=== PATIENT | female | born 1980 | race Caucasian/White ===

== ENCOUNTER 2016-07-14 15:18 | Inpatient (IN) | payer MEDICAID ==
[~2016-07-14] VITALS: Ht 177.8 cm; Wt 70.0 kg
[2016-07-14 16:11] LABS: Basophils # (auto) 0.1 uL; Basophils % (auto) 0.6 % (0.0-2.0); Eosinophils # (auto) 0.3 uL; Eosinophils % (auto) 3.3 % (0.0-7.0); Hematocrit 40.2 % (36.0-46.0); Hemoglobin 13.6 g/dL (12.2-16.2); Lymphocytes # (auto) 2.4 uL; Lymphocytes % (auto) 23.3 % (10.0-50.0); Mean Corpuscular Hemoglobin 31.2 pg (28.0-32.0); Mean Corpuscular Hgb Conc. 33.7 g/dL (32.0-36.0); Mean Corpuscular Volume 92.6 fL (80.0-100.0); Mean Platelet Volume 8.7 fL (7.4-10.4); Monocytes # (auto) 0.5 uL; Monocytes % (auto) 4.7 % (0.0-12.0); Neutrophils % (auto) 68.1 % (37.0-80.0); Platelet Count (auto) 224 10^3/uL (140-450); Red Cell Distribution Width 14.1 % (11.6-16.0); White Blood Cell 10.3 10^3/uL (4.4-10.8)
[2016-07-14 16:22] LABS: Urine Bilirubin Negative (Negative); Urine Blood TRACE /uL (Negative); Urine Color Yellow (Yellow); Urine Glucose Normal (Normal); Urine Ketone Negative (Negative); Urine Mucus FEW (None Seen); Urine Nitrite Negative (Negative); Urine RBC 15 /hpf (0 - 4); Urine Squamous Epithelial Cell FEW /hpf (<5)
[2016-07-14 16:31] LABS: BUN/Creatinine Ratio 13.6; Calcium 8.3 mg/dL (8.5-10.1); Potassium 3.7 mmol/L (3.5-5.1)
[2016-07-14 16:33] LABS: Bilirubin, Total 0.4 mg/dL (0.2-1.0); Total Protein 7.3 g/dL (6.4-8.2)
[2016-07-14] MEDS ORDERED: MORPHINE SULF INJ 2 MG/ML SYRINGE 1ML IM ONE (18:00)
[2016-07-14] MEDS ORDERED: SODIUM CHLORIDE 0.9% 1,000 ML IV ONE (18:00)
[2016-07-14] MEDS ORDERED: METOCLOPRAMIDE HCL 5MG/ml INJ 2ml VIAL IV ONE ×2 (18:15→21:15)
[2016-07-14] MEDS ORDERED: KETOROLAC TROMETH 30 MG/ML 1ML VIAL IV ONE ×2 (18:15→21:15)
[2016-07-14] MEDS ORDERED: HYDROmorphone HCL 2 MG/ML VL IV PRN (22:30)
[2016-07-14] MEDS: SODIUM CHLORIDE 0.9% 1,000 ML IV SCH (22:44)
[2016-07-14 23:13] LABS: INR 1.03 (0.9-1.15); Partial Thromboplastin Time 24.2 sec (22.64-33.71); Prothrombin Time 11.1 sec (9.37-12.3)
[2016-07-14 23:45] VITALS: BP 95/56
[2016-07-15] VITALS (7 sets, daily range): BP systolic 95–134; BP diastolic 46–68
[2016-07-15] MEDS: ceFAZolin 1GM/50ML D5W 50 ML IV SCH ×5 (00:05→23:19)
[2016-07-15] MEDS ORDERED: IBUP800T24 PO (00:41)
[2016-07-15] MEDS: SODIUM CHLORIDE 0.9% 1,000 ML IV SCH ×3 (05:56→23:19)
[2016-07-15] MEDS: ONDANSETRON HCL 4 MG/2 ML VIAL IV PRN (19:42)
[2016-07-16 05:00] VITALS: BP 111/62
[2016-07-16] MEDS: ceFAZolin 1GM/50ML D5W 50 ML IV SCH ×4 (05:31→23:14)
[2016-07-16] MEDS ORDERED: MIDAZOLAM HCL 1MG/1ML-2 ML VIAL ONE (06:26)
[2016-07-16] MEDS ORDERED: ROCURONIUM 10MG/ML 10ML VIAL IV ONE (06:26)
[2016-07-16] MEDS ORDERED: fentaNYL CITRATE 100 MCG/2 ML VL ONE (06:26)
[2016-07-16] MEDS ORDERED: fentaNYL CITRATE 10 ML ONE (06:26)
[2016-07-16] MEDS ORDERED: PROPOFOL 10 MG/ML 20 ML IV ONE (06:27)
[2016-07-16] MEDS ORDERED: SODIUM CHLORIDE LOCK 50 ML ONE (06:27)
[2016-07-16] MEDS ORDERED: MEPERIDINE HCL (50 MG/ML) 1 ML VIAL ONE (06:27)
[2016-07-16] MEDS ORDERED: ceFAZolin 1GM/50ML D5W 0 ML IV ONE (06:41)
[2016-07-16] MEDS ORDERED: HYDROmorphone HCL 2 MG/ML VL IV PRN (07:00)
[2016-07-16] MEDS ORDERED: KETOROLAC TROMETH 30 MG/ML 1ML VIAL IV ONE (07:00)
[2016-07-16] MEDS ORDERED: METOCLOPRAMIDE HCL 5MG/ml INJ 2ml VIAL IV ONE (07:00)
[2016-07-16] MEDS ORDERED: LIDOCAINE HCL (LOCAL ANESTH.) 0.5 % 50ML MDV IJ ONE (07:08)
[2016-07-16] MEDS ORDERED: BUPIVACAINE 0.25% INJ 50ML VIAL ONE (07:08)
[2016-07-16] MEDS ORDERED: LIDOCAINE W/ EPINEPHRINE 1 % INJ 30ML ONE (07:08)
[2016-07-16] MEDS: SODIUM CHLORIDE 0.9% 1,000 ML IV SCH ×3 (07:28→17:04)
[2016-07-16 08:00] VITALS: BP 104/74
[2016-07-16] MEDS ORDERED: GLYCOPYRROLATE 0.2 MG/ML 1ML VIAL ONE (08:29)
[2016-07-16] MEDS ORDERED: NEOSTIGMINE 1 MG/ML INJ (10mg/10ML VIAL) ONE (08:29)
[2016-07-16] MEDS ORDERED: KETOROLAC TROMETH 60MG/2ML VIAL IM ONE (08:29)
[2016-07-16] MEDS ORDERED: NITROGLYCERIN 0.4 MG SL TAB SL PRN (09:15)
[2016-07-16] MEDS ORDERED: METOCLOPRAMIDE HCL 5MG/ml INJ 2ml VIAL ONE (09:21)
[2016-07-16] MEDS ORDERED: PROCHLORPERAZINE EDISYLATE 5 MG/ML 2ML VIAL IV ONE ×2 (09:45→10:00)
[2016-07-16 11:19] VITALS: BP 104/74
[2016-07-16] MEDS: ONDANSETRON HCL 4 MG/2 ML VIAL IV PRN ×2 (13:03→17:10)
[2016-07-16 13:30] LABS: Basophils # (auto) 0 uL; Basophils % (auto) 0.2 % (0.0-2.0); Eosinophils # (auto) 0 uL; Eosinophils % (auto) 0.2 % (0.0-7.0); Hematocrit 30.2 % (36.0-46.0); Hemoglobin 10.2 g/dL (12.2-16.2); Lymphocytes % (auto) 8.3 % (10.0-50.0); Mean Corpuscular Hemoglobin 31.5 pg (28.0-32.0); Mean Corpuscular Hgb Conc. 33.7 g/dL (32.0-36.0); Mean Corpuscular Volume 93.4 fL (80.0-100.0); Mean Platelet Volume 8.9 fL (7.4-10.4); Monocytes # (auto) 0.6 uL; Monocytes % (auto) 5.1 % (0.0-12.0); Neutrophils # (auto) 10.2 uL; Neutrophils % (auto) 86.2 % (37.0-80.0); Platelet Count (auto) 180 10^3/uL (140-450); Red Cell Distribution Width 13.7 % (11.6-16.0); White Blood Cell 11.9 10^3/uL (4.4-10.8)
[2016-07-16 13:35] VITALS: BP 108/66
[2016-07-16 20:00] VITALS: BP 105/60
[2016-07-16 22:07] VITALS: BP 105/60
[2016-07-17] MEDS: ACETAMINOPHEN 500 MG TAB PO PRN ×3 (01:58→13:09)
[2016-07-17] MEDS: SODIUM CHLORIDE 0.9% 1,000 ML IV SCH ×2 (01:59→09:02)
[2016-07-17 05:00] VITALS: BP 116/61
[2016-07-17] MEDS: ceFAZolin 1GM/50ML D5W 50 ML IV SCH ×2 (05:19→12:00)
[2016-07-17 05:20] LABS: Basophils # (auto) 0 uL; Basophils % (auto) 0.3 % (0.0-2.0); Eosinophils # (auto) 0.1 uL; Eosinophils % (auto) 1.2 % (0.0-7.0); Hematocrit 28.9 % (36.0-46.0); Hemoglobin 9.7 g/dL (12.2-16.2); Lymphocytes # (auto) 1.6 uL; Lymphocytes % (auto) 19.4 % (10.0-50.0); Mean Corpuscular Hemoglobin 31.1 pg (28.0-32.0); Mean Corpuscular Hgb Conc. 33.5 g/dL (32.0-36.0); Mean Corpuscular Volume 92.9 fL (80.0-100.0); Mean Platelet Volume 9.6 fL (7.4-10.4); Monocytes # (auto) 0.6 uL; Neutrophils % (auto) 72.1 % (37.0-80.0); Platelet Count (auto) 177 10^3/uL (140-450); Red Cell Distribution Width 14.1 % (11.6-16.0); White Blood Cell 8.3 10^3/uL (4.4-10.8)
[2016-07-17 06:39] VITALS: BP 102/58
[2016-07-17 08:00] VITALS: BP 102/58
[2016-07-17 10:47] VITALS: BP 110/65
== END 2016-07-17 12:35 | disposition home or self-care (01) | DRG 951 ==
LOC: ER 15:18 → OVERFLOW 15:19 → WEST WING 23:06
PROVIDERS: ADMIT Obstetrics & Gynecology; ATTEND Obstetrics & Gynecology
PROC: 0UT14ZZ Resection of Left Ovary, Percutaneous Endoscopic Approach (ICD-10-PCS; 2016-07-16)
PROC: 8E0W4CZ Robotic Assisted Procedure of Trunk Region, Percutaneous Endoscopic Approach (ICD-10-PCS; 2016-07-16)
PROC: 0U904ZZ Drainage of Right Ovary, Percutaneous Endoscopic Approach (ICD-10-PCS; 2016-07-16)
PROC: 0UT64ZZ Resection of Left Fallopian Tube, Percutaneous Endoscopic Approach (ICD-10-PCS; principal; 2016-07-16 07:24)
DX: R19.00 Intra-abdominal and pelvic swelling, mass and lump, unspecified site (principal); K66.1 Hemoperitoneum; N39.0 Urinary tract infection, site not specified; F17.210 Nicotine dependence, cigarettes, uncomplicated; E28.2 Polycystic ovarian syndrome; Z85.41 Personal history of malignant neoplasm of cervix uteri; Z82.5 Family history of asthma and other chronic lower respiratory diseases; Z80.41 Family history of malignant neoplasm of ovary; Z80.49 Family history of malignant neoplasm of other genital organs
CPT/HCPCS: 36415; 74177; 76830; 76856; 80053; 81001; 84702; 85025; 85610; 85730; 86850; 86900; 86901; 96374; 96375; 96376; J0690; J1885; J2250; J2405; J2704; J3490

== ENCOUNTER 2019-01-12 11:21 | Emergency (ER) | payer MEDICAID ==
[~2019-01-12] VITALS: Ht 177.8 cm; Wt 81.6 kg
[~2019-01-12 11:21] MED LIST: IBUP800T24 PO
[2019-01-12 13:05] LABS: Basophils # (auto) 0.1 uL; Basophils % (auto) 0.9 % (0.0-2.0); Eosinophils # (auto) 0.3 uL; Eosinophils % (auto) 3.7 % (0.0-7.0); Hemoglobin 14.8 g/dL (12.2-16.2); Lymphocytes # (auto) 2.6 uL; Lymphocytes % (auto) 28.4 % (10.0-50.0); Mean Corpuscular Hemoglobin 31.3 pg (28.0-32.0); Mean Corpuscular Hgb Conc. 34.4 g/dL (32.0-36.0); Mean Corpuscular Volume 91.1 fL (80.0-100.0); Monocytes # (auto) 0.4 uL; Monocytes % (auto) 4.7 % (0.0-12.0); Neutrophils # (auto) 5.8 uL; Neutrophils % (auto) 62.3 % (37.0-80.0); Nucleated Red Blood Cells % 0.1 %; Platelet Count (auto) 211 10^3/uL (140-450); Red Blood Cells 4.72 10^6/uL (4.0-5.20); Red Cell Distribution Width 13.5 % (11.8-14.3); White Blood Cell 9.3 10^3/uL (4.4-10.8)
[2019-01-12 13:31] LABS: Urine Bacteria FEW /hpf (None Seen); Urine Blood 1+ /uL (Negative); Urine Specific Gravity 1.014 (1.001-1.035); Urine WBC 1 /hpf (0 - 5)
[2019-01-12 16:26] VITALS: BP 119/70
== END 2019-01-12 16:30 | disposition home or self-care (01) ==
LOC: ER 11:21
DX: N39.0 Urinary tract infection, site not specified (principal); F17.210 Nicotine dependence, cigarettes, uncomplicated; F12.10 Cannabis abuse, uncomplicated; Z90.710 Acquired absence of both cervix and uterus; N83.202 Unspecified ovarian cyst, left side; N83.201 Unspecified ovarian cyst, right side
CPT/HCPCS: 36415; 81001; 85025

== ENCOUNTER 2022-05-21 14:10 | Emergency (ER) | payer MEDICAID ==
[~2022-05-21] VITALS: Ht 177.8 cm; Wt 90.0 kg
[~2022-05-21 14:10] MED LIST changes: -IBUP800T24 PO; +IBUP800T27 PO
[2022-05-21 14:18] VITALS: BP 142/76
[2022-05-21 14:54] LABS: Basophils # (auto) 0.1 10 ^3/uL (0-0.2); Basophils % (auto) 0.8 % (0.0-2.0); Eosinophils # (auto) 0.2 10 ^3/uL (0-0.8); Eosinophils % (auto) 2.4 % (0.0-7.0); Hematocrit 40.7 % (36.0-46.0); Hemoglobin 14.4 g/dL (12.2-16.2); Lymphocytes % (auto) 32.3 % (10.0-50.0); Mean Corpuscular Hemoglobin 31.3 pg (28.0-32.0); Mean Corpuscular Hgb Conc. 35.4 g/dL (32.0-36.0); Mean Corpuscular Volume 88.4 fL (80.0-100.0); Monocytes # (auto) 0.5 10 ^3/uL (0-1.3); Neutrophils # (auto) 5.5 10 ^3/uL (1.6-8.6); Neutrophils % (auto) 59.5 % (37.0-80.0); Nucleated Red Blood Cells % 0.1 %; Red Blood Cells 4.61 10^6/uL (4.0-5.20); Red Cell Distribution Width 13.3 % (11.8-14.3); White Blood Cell 9.2 10^3/uL (4.4-10.8)
[2022-05-21 14:57] LABS: BUN/Creatinine Ratio 13.7; Calcium 9.2 mg/dL (8.5-10.1); Potassium 4.1 mmol/L (3.5-5.1)
[2022-05-21 15:05] LABS: Bilirubin, Total 0.4 mg/dL (0.2-1.0); Total Protein 7.2 g/dL (6.4-8.2)
[2022-05-21] MEDS ORDERED: CYCLOBENZAPRINE HCL 10 MG TAB PO ONE (16:00)
[2022-05-21] MEDS ORDERED: HYDROcodone-ACET 5/325MG TAB PO ONE (16:00)
== END 2022-05-21 20:10 | disposition left against medical advice (07) ==
LOC: ER 14:10
DX: R07.89 Other chest pain (principal); Z90.710 Acquired absence of both cervix and uterus; Z79.1 Long term (current) use of non-steroidal anti-inflammatories (NSAID)
CPT/HCPCS: 36415; 71045; 80053; 83735; 83880; 84484; 84702; 85025; 85379; 93005

== ENCOUNTER 2024-04-29 11:30 | Inpatient (IN) | payer MEDICAID ==
[~2024-04-29] VITALS: Ht 177.8 cm; Wt 100.5 kg
[~2024-04-29 11:30] MED LIST changes: +IBUP-1456 PO; -IBUP800T27 PO
--- NOTE | 2024-04-29 11:49 | ED.PDOC ---
History of Present Illness HPI Comments 43F presents to the Er w/ prior Hx of a hysterectomy and ovary Sx which all may be associated to the c/c of ABD pain. Pt reports on waking up this morning at 0200 w/ epigastric pain and N/V. Pt states that she woke up at 0400 she was having /D, w/ blood and chills. Social Hx of Tobacco and Marijuana use but denies alcohol use. Family Hx of DM and COPD. Denies chills, fever, N/V/D, SOB, CP or other associated symptom's, modifiers, or recent injuries or sick contact at this time. Chief Complaint: Abdominal Pain Time Seen by MD: 11:40 Primary Care Provider: NONE Reviewed Notes: Nurses Notes, Medications, Allergies Allergies: Coded Allergies: NO KNOWN ALLERGIES (Unverified , 03/09/18) Home Meds Reported Medications Ibuprofen (Ibuprofen) 800 Mg Tab, 800 MG PO PRN for MILD PAIN, MG 07/15/16 Information Source: Patient Mode of Arrival: Ambulatory Severity: Moderate Timing: Hours Duration: Since onset, Hours Prehospital treatment: None Past Medical History PAST MEDICAL HISTORY: Denies Surgical History: Hysterectomy [employer]ATOR History: Ovarian Cysts (removed) Family History Family History: Family hx of DM, Family hx of lung dara Social History Smoker: Cigarettes Alcohol: Denies ETOH Use Drugs: Marijuana Lives In: Home Constitutional: reports: chills; denies: diaphoresis, fatigue, fever, malaise, sweats, weakness, others EENTM: denies: blurred vision, double vision, ear bleeding, ear discharge, ear drainage, ear pain, ear ringing, eye pain, eye redness, hearing loss, mouth pain, mouth swelling, nasal discharge, nose bleeding, nose congestion, nose pain, photophobia, tearing, throat pain, throat swelling, voice changes, others Respiratory: denies: cough, hemoptysis, orthopnea, SOB at rest, shortness of breath, SOB with excertion, stridor, wheezing, others Cardiovascular: denies: chest pain, dizzy spells, diaphoresis, Dyspnea on exertion, edema, irregular heart beat, left arm pain, lightheadedness, palpitations, PND, syncope, others Gastrointestinal: reports: diarrhea, nausea, vomiting, others (Hematochezia); denies: abdomen distended, abdominal pain, blood streaked bowels, constipated, dysphagia, difficulty swallowing, hematemesis, melena, poor appetite, poor fluid intake, rectal bleeding, rectal pain Genitourinary: denies: abnormal vagina bleeding, burning, dyspareunia, dysuria, flank pain, frequency, hematuria, incontinence, pain, , vagina discharge, urgency, others Neurological: denies: dizziness, fainting, headache, left sided numbness, left sided weakness, numbness, paresthesia, pre-existing deficit, right sided numbness, right sided weakness, seizure, speech problems, tingling, tremors, weakness, others Musculoskeletal: denies: back pain, gout, joint pain, joint swelling, muscle pain, muscle stiffness, neck pain, others Integumetry: denies: bruises, change in color, change in hair/nails, dryness, laceration, lesions, lumps, rash, wounds, others Allergic/Immunocompromised: denies: Difficulty Healing, Frequent Infections, Hives, Itching, others Hematologic/Lymphatic: denies: anemia, blood clots, easy bleeding, easy bruising, swollen glands, others Endocrine: denies: excessive hunger, excessive sweating, excessive thirst, excessive urination, flushing, intolerance to cold, intolerance to heat, unexplained weight gain, unexplained weight loss, others Psychiatric: denies: anxiety, bipolar disorder, depression, hopeless, panic disorder, schizophrenia, sleepless, suicidal, others All Other Systems: Reviewed and Negative Physical Exam General Appearance: Moderate Distress HEENT: Normal ENT Inspection, Pharynx Normal, TMs Normal Neck: Full Range of Motion, Non-Tender, Normal, Normal Inspection Respiratory: Chest Non-Tender, Lungs Clear, No Accessory Muscle Use, No Respiratory Distress, Normal Breath Sounds Cardiovascular: No Edema, No JVD, No Murmur, No Gallop, Normal Peripheral Pulses, Regular Rate/Rhythm Breast Exam: Deferred Gastrointestinal: Diffuse, No Organomegaly, No Pulsatile Mass, Normal Bowel Sounds, Soft, Tenderness Genitalia: Deferred Pelvic: Deferred Rectal: Deferred Extremities: No calf tenderness, Normal capillary refill, Normal inspection, Normal range of motion, Non-tender, No pedal edema Musculoskeletal : Apperance: Normal Neurologic: Alert, filter filler II-XII nml as Tested, Motor Weakness, Normal Affect, Normal Mood, No Sensory Deficits Cerebellar Function: Normal Reflexes: Normal Skin: Dry, Normal Color, Warm Lymphatic: No Adenopathy Was a procedure done? Was a procedure done?: No Differential Dx Considerations may include: Generalized weakness, gallstones, UTI, kidney stones X-Ray, Labs, Meds, VS Vital Signs Date Time Temp Pulse Resp B/P (MAP) Pulse Ox O2 Delivery O2 Flow Rate FiO2 04/29/24 15:20 98.7 82 17 122/81 (95) 97 98.7 04/29/24 13:00 85 18 95 Room Air* 0 21 04/29/24 12:40 85 18 98 Room Air 04/29/24 12:40 98.8 85 18 126/87 (100) 98 98.8 04/29/24 11:37 98.2 88 20 144/74 (97) 97 Lab Test 04/29/24 13:00 04/29/24 11:53 Range/Units Urine Color Light-yellow Yellow Urine Clarity Clear Clear Urine pH 7.0 5.0-9.0 Urine Specific [place] 1.010 1.001-1.035 Urine Protein Negative Negative Urine Ketones Negative Negative Urine Blood Negative Negative /uL Urine Nitrite Negative Negative Urine Bilirubin Negative Negative Urine Urobilinogen Normal Negative mg/dL Urine Leukocyte Esterase Negative Negative /uL Urine RBC 5 0 - 4 /hpf Urine Microscopic WBC 2 0-5 /HPF Urine Squamous Epithelial Cells Few <5 /hpf Urine Bacteria Few H None Seen /hpf Urine Glucose Normal Normal mg/dL White Blood Count 13.8 H 4.4-10.8 10^3/uL Red Blood Count 5.12 4.0-5.20 10^6/uL Hemoglobin 15.7 12.2-16.2 g/dL Hematocrit 45.3 36.0-46.0 % Mean Corpuscular Volume 88.5 80.0-100.0 fL Mean Corpuscular Hemoglobin 30.7 28.0-32.0 pg Mean Corpuscular Hemoglobin Concent 34.7 32.0-36.0 g/dL Red Cell Distribution Width 13.8 11.8-14.3 % Platelet Count 240 140-450 10^3/uL Mean Platelet Volume 8.8 6.9-10.8 fL Neutrophils (%) (Auto) 84.1 H 37.0-80.0 % Lymphocytes (%) (Auto) 10.8 10.0-50.0 % Monocytes (%) (Auto) 4.1 0.0-12.0 % Eosinophils (%) (Auto) 0.6 0.0-7.0 % Basophils (%) (Auto) 0.4 0.0-2.0 % Neutrophils # (Auto) 11.6 H 1.6-8.6 10 ^3/uL Lymphocytes # (Auto) 1.5 0.4-5.4 10 ^3/uL Monocytes # (Auto) 0.6 0-1.3 10 ^3/uL Eosinophils # (Auto) 0.1 0-0.8 10 ^3/uL Basophils # (Auto) 0.1 0-0.2 10 ^3/uL Nucleated Red Blood Cells 0.0 % Sodium Level 140 136-145 mmol/L Potassium Level 4.1 3.5-5.1 mmol/L Chloride Level 110 H 98-107 mmol/L Carbon Dioxide Level 25 20-31 mmol/L Anion Gap 5 5-15 Blood Urea Nitrogen 11 9-23 mg/dL Creatinine 0.74 0.550-1.02 mg/dL Glomerular Filtration Rate Calc 104 >90 mL/min BUN/Creatinine Ratio 14.9 10.0-20.0 Serum Glucose 104 74-106 mg/dL Calcium Level 10.1 8.7-10.4 mg/dL Total Bilirubin 0.4 0.2-1.0 mg/dL Aspartate Amino Transferase (AST) 16 13-40 U/L Alanine Aminotransferase (ALT) 24 7-40 U/L Alkaline Phosphatase 87 46-116 U/L Total Protein 7.6 5.7-8.2 g/dL Albumin 4.7 3.2-4.8 g/dL Lipase 33 12-53 U/L Exam: CT CT AB PEL WO CON-NO ORAL OR IV IMPRESSION: 1. Calculus in the dependent right bladder near the right ureterovesicular junction. No associated hydroureter or hydronephrosis. Nonobstructive right low er pole renal calculus. Urology evaluation is recommended. 2. Diffuse hepatic steatosis. Sludge and stones in the gallbladder. Radiation optimization: All CT scans at this facility use at least one of these dose optimization techniques: Automated exposure control mA and/or kV adjustment per patient size (includes targeted exams where dose is matched to clinical indication) or iterative reconstruction. The patient is being admitted at this time The patient does have a history of gallstones per CT scan The patient's CBC shows an elevated white blood cell count of 13.8 The rest of the CBC is within normal limits. At this time, a urology consult will be obtained The patient was being admitted. Images Reviewed?: Images reviewed and evaluated by me Time of 1ST Reevaluation: 12:10 Reevaluation 1ST: Unchanged Patient Education/Counseling: Diagnosis, Treatment, Prognosis Family Education/Counseling: No Family Present Departure 1 Departure Time of Disposition: 16:45 Impression: Primary Impression: Abdominal pain of unknown etiology Additional Impressions: Renal stone Gallstones Disposition: ADMITTED INPATIENT Admit to: Med Surg Condition: Fair Critical Care Note Critical Care Time?: No Stability Stability form required: Yes Unstable for transfer: ED Physician Assesment (Clinical assesment) Heart Score Heart Score: Heart Score Response (Comments) Value History N/A 0 EKG N/A 0 Age N/A 0 Risk Factors N/A 0 Troponin N/A 0 Total 0 I personally scribed for CADEN FREEMAN MD ([email or web address]) on 04/29/24 at 11:49. Electronically submitted by Best Navas ([email or web address]). I personally scribed for CADEN FREEMAN MD ([email or web address]) on 04/29/24 at 12:41. Electronically submitted by [employer] ([email or web address]). I personally scribed for CADEN FREEMAN MD ([email or web address]) on 04/29/24 at 13:04. Electronically submitted by [employer] ([email or web address]). CADEN FREEMAN MD Apr 29, 2024 11:49
[2024-04-29 12:11] LABS: Basophils # (auto) 0.1 10 ^3/uL (0-0.2); Basophils % (auto) 0.4 % (0.0-2.0); Eosinophils # (auto) 0.1 10 ^3/uL (0-0.8); Eosinophils % (auto) 0.6 % (0.0-7.0); Hematocrit 45.3 % (36.0-46.0); Hemoglobin 15.7 g/dL (12.2-16.2); Lymphocytes # (auto) 1.5 10 ^3/uL (0.4-5.4); Lymphocytes % (auto) 10.8 % (10.0-50.0); Mean Corpuscular Hemoglobin 30.7 pg (28.0-32.0); Mean Corpuscular Hgb Conc. 34.7 g/dL (32.0-36.0); Mean Corpuscular Volume 88.5 fL (80.0-100.0); Monocytes # (auto) 0.6 10 ^3/uL (0-1.3); Monocytes % (auto) 4.1 % (0.0-12.0); Neutrophils # (auto) 11.6 10 ^3/uL (1.6-8.6); Neutrophils % (auto) 84.1 % (37.0-80.0); Platelet Count (auto) 240 10^3/uL (140-450); Red Blood Cells 5.12 10^6/uL (4.0-5.20); Red Cell Distribution Width 13.8 % (11.8-14.3); White Blood Cell 13.8 10^3/uL (4.4-10.8)
--- NOTE | 2024-04-29 12:19 | DVH ---
Exam: CT CT AB PEL WO CON-NO ORAL OR IV History: pain Comparison Study: None Technique: Multidetector spiral CT of the abdomen and pelvis was performed from lung bases to pubic symphysis. Imaging was performed without IV contrast. Axial, coronal and sagittal multiplanar reform ats were obtained from the axial data set by the technologist. Radiation dose : Abdomen/Pelvis: CTDIvol 23 mGy, DLP 1118 mGy*cm. Findings: Evaluation of solid organs is limited due to lack of intravenous contrast use. Lung Bases: No acute or significant lung base finding. Normal heart size. No pleural or pericardial effusion. Liver: Diffuse hepatic steatosis. Gallbladder and biliary Tree: Sludge and stones in the gallbladder. Spleen: Unremarkable Pancreas: The pancreas is grossly normal in appearance. Adrenal Glands: Unremarkable Kidneys: Right lower pole renal calculus measuring up to 8 mm. No hydronephrosis. Bladder: Calculus in the dependent bladder near the right ureterovesicular junction measuring up to 9 mm. Bowel: The stomach is grossly normal in appearance. Small bowel and colon are normal in caliber and d istribution. Normal appendix is visualized in the right lower quadrant without findings of appendici tis. Ascites: Absent Lymphadenopathy: No mesenteric, retroperitoneal or periportal lymphadenopathy. Abdominal wall and Mesentery: Unremarkable. Vasculature: The visualized abdominal aorta is normal in size and caliber. Evaluation of abdominal a nd pelvic vessels is limited due to lack of intravenous contrast. Pelvic Organs: The uterus is surgically absent. Musculoskeletal: No aggressive focal bony lesions, acute fractures or dislocation. IMPRESSION: 1. Calculus in the dependent right bladder near the right ureterovesicular junction. No associated hy droureter or hydronephrosis. Nonobstructive right lower pole renal calculus. Urology evaluation is recommended. 2. Diffuse hepatic steatosis. Sludge and stones in the gallbladder. Radiation optimization: All CT scans at this facility use at least one of these dose optimization leyda hniques: Automated exposure control mA and/or kV adjustment per patient size (includes targeted exams where dose is matched to clinical indication) or iterative reconstruction. HS:Y
[2024-04-29 12:36] LABS: Alanine Aminotransferase 24 U/L (7-40); Albumin 4.7 g/dL (3.2-4.8); Alkaline Phosphatase 87 U/L (46-116); Anion Gap 5 (5-15); Aspartate Aminotransferase 16 U/L (13-40); BUN/Creatinine Ratio 14.9 (10.0-20.0); Bilirubin, Total 0.4 mg/dL (0.2-1.0); Blood Urea Nitrogen 11 mg/dL (9-23); Calcium 10.1 mg/dL (8.7-10.4); Carbon Dioxide 25 mmol/L (20-31); Glucose 104 mg/dL (74-106); Lipase 33 U/L (12-53); Potassium 4.1 mmol/L (3.5-5.1); Sodium 140 mmol/L (136-145); Total Protein 7.6 g/dL (5.7-8.2)
[2024-04-29 12:37] LABS: Chloride 110 mmol/L (98-107)
[2024-04-29] MEDS: ONDANSETRON ODT 4 MG TAB PO ONE (12:44)
[2024-04-29 13:00] VITALS: PULSE 85; RESP 18; O2SAT 95
[2024-04-29 13:59] LABS: Urine Bacteria FEW /hpf (None Seen); Urine Blood Negative /uL (Negative); Urine Clarity Clear (Clear); Urine Color Light-Yellow (Yellow); Urine Protein, UAD Negative (Negative); Urine Squamous Epithelial Cell FEW /hpf (<5); Urine Urobilinogen Normal (Negative); Urine WBC 2 /HPF (0-5)
[2024-04-29] MEDS: SODIUM CHLORIDE 0.9% 1,000 ML IV ONE (21:30)
[2024-04-29] MEDS ORDERED: ONDANSETRON HCL 4 MG/2 ML VIAL IV PRN (21:30)
[2024-04-29] MEDS ORDERED: MORPHINE SULFATE INJ 2 MG/ml SYRG IV PRN (21:30)
[2024-04-29 22:04] LABS: Hematocrit 44.4 % (36.0-46.0)
[2024-04-29 22:08] VITALS: BP 121/81; PULSE 81; RESP 18; TEMP 98.9; O2SAT 97
[2024-04-29 22:16] LABS: INR 1.02 (0.9-1.15); Partial Thromboplastin Time 27.9 SEC (24.5-34.5); Prothrombin Time 10.8 sec (9.3-11.8)
--- NOTE | 2024-04-29 22:19 | DVHHPRES ---
History of Present Illness Resident Creating Document: SHAISTA POWER RESIDENT Reason for Visit: abdominal pain History of Present Illness This is a 43-year-old female who presented to the ED with chief complain of abdominal pain. She has a past surgical history relevant for total hysterectomy, denies any other past medical history. She states smoking about eight cigarettes per day for the last 20 years, denies alcohol use, states using cannabis. Patient states that since today morning at 4:00 a.m. she woke up at 4:00 a.m. with severe epigastric pain associated with nausea and vomiting. She stated that the pain was severe, localized, patient she had about 10 episodes of vomiting, denied any brown coffee masses or hematemesis, she says it was mainly food. She also states experiencing several episodes of diarrhea, watery, as well as hematochezia, she stated that this is the 1st time she has bloody diarrhea. She stated that her daughter currently has flu-like illness. Patient also mentions having polyuria, chills and general malaise, denies any d ysuria, on also states having [id number] lower back pain. She currently denies any chest pain, shortness of breath, cough, fevers. A plane in the ED bleeding of fatigue patient refused Zofran vision, she had a CT of the abdomen without contrast performed which showed nonobstructive calculus near right ureterovesicular junction, no hydroureter or hydronephrosis. Hepatic steatosis and cholelithiasis. WBC count was also elevated at 13.8. Vital signs were stable. Past Surgical History: Hysterectomy Smoke: <1 pack per day ALCOHOL: none Drugs: Marijuana Review of Systems Constitutional: Yes: Chills, Malaise; No: Fever, Sweats, Weakness, Other Eyes: No: Pain, Vision change, Conjunctivae inflammation, Eyelid inflammation, Other, Redness ENT: No: Ear pain, Ear discharge, Nose pain, Nose discharge, Nose congestion, Mouth pain, Mouth swelling, Throat pain, Throat swelling, Other Respiratory: No: Cough, Dry, Shortness of breath, SOB with excertion, Wheezing, Hemoptysis, Pleuritic Pain, Sputum, Wheezing, Other Cardiovascular: No: Chest Pain, Palpitations, Orthopnea, Paroxysmal Noc. Dyspnea, Edema, Lt Headedness, Other Gastrointestinal: Nausea, Vomiting, Abdominal Pain, Diarrhea, Hematochezia; No: Constipation, Melena, Other Genitourinary: No Dysuria; Frequency; No Incontinence, No Hematuria, No Retention, No Other Musculoskeletal: No: other, neck pain, shoulder pain, arm pain, back pain, hand pain, leg pain, foot pain Skin: No: Rash, Lesions, Jaundice, Bruising, Other Neurological: No: Weakness, Numbness, Incoordination, Change in speech, Confusion, Seizures, Other Allergies: Coded Allergies: NO KNOWN ALLERGIES (Unverified , 03/09/18) Medications Current Medications Medications Dose Ordered Sig/Win Route Start Time Stop Time Status Last Admin Dose Admin Pantoprazole Sodium 40 mg BID IV 04/29/24 22:00 Ondansetron HCl 4 mg Q4HPRN PRN IV 04/29/24 21:30 Morphine Sulfate 1 mg Q4HP PRN IV 04/29/24 21:30 Exam Vital Signs Vital Signs Date Time Temp Pulse Resp B/P (MAP) Pulse Ox O2 Delivery O2 Flow Rate FiO2 04/29/24 21:16 98.2 75 122/71 (88) 95 98.2 04/29/24 18:22 16 04/29/24 13:00 Room Air* 0 21 Exam Rectal examination was deferred as patient was in the lobby and no private room was available General Appearance: Alert, Oriented X3, Cooperative, mild distress HEENT: Atraumatic, PERRLA, EOMI Respiratory: Clear to auscultation, Normal air movement Cardiovascular: Regular rate, Normal S1, Normal S2, No murmurs Abdominal: Normal bowel sounds, Soft, No tenderness, No hepatospenomegaly, No masses Extremities: No clubbing, No cyanosis, No edema, Normal pulses Skin: No rashes, No breakdown, No significant lesion Neuro: Normal gait, Normal speech, Strength at 5/5 X4 ext, Normal tone, Sensation intact Psych/Mental Status: Mental status NL, Mood NL Labs/Xrays Labs Test 04/29/24 21:35 04/29/24 13:00 04/29/24 11:53 Range/Units Lactic Acid Level 1.2 0.4-2.0 mmol/L Beta HCG, Quantitative 2.8 1.5-4.2 mIU/mL Urine Color Light-yellow Yellow Urine Clarity Clear Clear Urine pH 7.0 5.0-9.0 Urine Specific [place] 1.010 1.001-1.035 Urine Protein Negative Negative Urine Ketones Negative Negative Urine Blood Negative Negative /uL Urine Nitrite Negative Negative Urine Bilirubin Negative Negative Urine Urobilinogen Normal Negative mg/dL Urine Leukocyte Esterase Negative Negative /uL Urine RBC 5 0 - 4 /hpf Urine Microscopic WBC 2 0-5 /HPF Urine Squamous Epithelial Cells Few <5 /hpf Urine Bacteria Few H None Seen /hpf Urine Glucose Normal Normal mg/dL White Blood Count 13.8 H 4.4-10.8 10^3/uL Red Blood Count 5.12 4.0-5.20 10^6/uL Mean Corpuscular Volume 88.5 80.0-100.0 fL Mean Corpuscular Hemoglobin 30.7 28.0-32.0 pg Mean Corpuscular Hemoglobin Concent 34.7 32.0-36.0 g/dL Red Cell Distribution Width 13.8 11.8-14.3 % Platelet Count 240 140-450 10^3/uL Mean Platelet Volume 8.8 6.9-10.8 fL Neutrophils (%) (Auto) 84.1 H 37.0-80.0 % Lymphocytes (%) (Auto) 10.8 10.0-50.0 % Monocytes (%) (Auto) 4.1 0.0-12.0 % Eosinophils (%) (Auto) 0.6 0.0-7.0 % Basophils (%) (Auto) 0.4 0.0-2.0 % Neutrophils # (Auto) 11.6 H 1.6-8.6 10 ^3/uL Lymphocytes # (Auto) 1.5 0.4-5.4 10 ^3/uL Monocytes # (Auto) 0.6 0-1.3 10 ^3/uL Eosinophils # (Auto) 0.1 0-0.8 10 ^3/uL Basophils # (Auto) 0.1 0-0.2 10 ^3/uL Nucleated Red Blood Cells 0.0 % Sodium Level 140 136-145 mmol/L Potassium Level 4.1 3.5-5.1 mmol/L Chloride Level 110 H 98-107 mmol/L Carbon Dioxide Level 25 20-31 mmol/L Anion Gap 5 5-15 Blood Urea Nitrogen 11 9-23 mg/dL Creatinine 0.74 0.550-1.02 mg/dL Glomerular Filtration Rate Calc 104 >90 mL/min BUN/Creatinine Ratio 14.9 10.0-20.0 Serum Glucose 104 74-106 mg/dL Calcium Level 10.1 8.7-10.4 mg/dL Total Bilirubin 0.4 0.2-1.0 mg/dL Aspartate Amino Transferase (AST) 16 13-40 U/L Alanine Aminotransferase (ALT) 24 7-40 U/L Alkaline Phosphatase 87 46-116 U/L Total Protein 7.6 5.7-8.2 g/dL Albumin 4.7 3.2-4.8 g/dL Lipase 33 12-53 U/L Assessment/Plan Assessment/Plan #GI bleeding, likely lower GI bleeding, rule out peptic ulcer disease, diverticular disease, hemorrhoids, infectious #Abdominal pain, likely due to above, possible viral versus bacterial gastroenteritis #Leukocytosis likely due to above Monitor H&H Clear liquid diet Protonix 40 mg IV b.i.d. Zofran IV p.r.n. Stool studies ordered Ordered lactic acid Ordered NS 1 L IV once we will continue maintenance fluids Ordered COVID and flu GI has been consulted #Cannabis use, possible cannabis hyperemesis syndrome UDS ordered #Current smoker Counseled on smoking cessation #Obesity Counseled on lifestyle modifications #Right UVJ calculus Consulted urology Goals of care were discussed for 30 minutes. Full code Case was discussed with Dr. Dee Plan discussed with: Patient My Orders Orders - SHAISTA POWER RESIDENT Procedure Category Date Status Time Admit ADMIT 04/29/24 Transmitted 21:15 Notify Of Changes STEPH 04/29/24 In Process From Base 21:15 Clear Liq Diet DIET 04/30/24 Transmitted Breakfast Pantoprazole PHA 04/29/24 In Process (Protonix) 22:00 Ondansetron Hcl PHA 04/29/24 In Process (Zofran) 21:30 Morphine Sulfate PHA 04/29/24 In Process Injection 21:30 Hemoglobin & LAB 04/29/24 In Process Hematocrit 21:22 Complete Blood Count LAB 04/30/24 Verified 04:00 Basic Metabolic Panel LAB 04/30/24 Verified 04:00 Drug Screen LAB 04/29/24 Logged 21:22 Sodium Chloride 0.9% PHA 04/29/24 In Process 21:30 Sodium Chloride 0.9% PHA 04/29/24 In Process 21:30 Chest Xray 1 View XY 1/24/25 Logged 21:22 * Gi Dvh [employer] Installer CONS 04/29/24 Transmitted 21:22 Covid19 Antigen Herlinda LAB 04/29/24 Logged Rapid Influenza A&B LAB 04/29/24 Logged 21:22 Stool Occult Blood LAB 04/29/24 Logged 21:22 Stool Bacterial GLENN 04/29/24 Logged Culture 21:22 Stool Wbc LAB 04/29/24 Logged 21:22 Clostridium Difficile GLENN 04/29/24 Logged Toxin 21:22 PTPTT LAB 04/29/24 In Process 21:29 Date of Service: Apr 29, 2024 Billing Provider: SAMRA DEE MD Common Visit Codes: [id number] INP/OBS CARE (HIGH) SHAISTA POWER RESIDENT Apr 29, 2024 22:19 SAMRA DEE MD May 01, 2024 00:29
--- NOTE | 2024-04-29 22:54 | DVH ---
CHEST RADIOGRAPH Indication: sob Technique: Single frontal view of the chest was obtained Comparison: CHEST PORTABLE on DOS: 05/21/22, CXRP on DOS: 05/21/22 FINDINGS: Lines and Tubes: None Lungs: No focal consolidation. Pleura: No effusion. No pneumothorax. Cardiomediastinal contours: Unremarkable Bones: No acute osseous abnormality. IMPRESSION: 1. No acute cardiopulmonary disease.
[2024-04-29 23:24] LABS: Amphetamine Screen, Urine Neg (NEGATIVE); Barbiturate Scree,Urine Neg (NEGATIVE); Benzodiazephine Screen, Urine Neg (NEGATIVE); Cannabinoid Screen, Urine Pos (NEGATIVE); Cocaine Screen, Urine Neg (NEGATIVE); Opiate Scree,Urine Neg (NEGATIVE); Phencyclidine Screen, Urine Neg (NEGATIVE)
[2024-04-29 23:34] LABS: COVID19 ANTIGEN SOFIA FIA NEGATIVE (NEGATIVE)
[2024-04-29 23:35] LABS: Rapid Influenza A Negative (Negative); Rapid Influenza B Negative (Negative)
[2024-04-30] VITALS (7 sets, daily range): BP systolic 100–119; BP diastolic 51–73; PULSE 54–82; RESP 14–20; TEMP 98–98.6; O2SAT 94–96
[2024-04-30] MEDS: SODIUM CHLORIDE 0.9% 1,000 ML IV ONE (08:00)
[2024-04-30] MEDS: PANTOPRAZOLE 40 MG/10 ML VIAL INJ IV SCH (10:00)
[2024-04-30 10:40] LABS: Basophils # (auto) 0.1 10 ^3/uL (0-0.2); Basophils % (auto) 0.8 % (0.0-2.0); Eosinophils # (auto) 0.3 10 ^3/uL (0-0.8); Eosinophils % (auto) 3.2 % (0.0-7.0); Hematocrit 40.7 % (36.0-46.0); Hemoglobin 13.9 g/dL (12.2-16.2); Lymphocytes # (auto) 2.1 10 ^3/uL (0.4-5.4); Lymphocytes % (auto) 27.2 % (10.0-50.0); Mean Corpuscular Hemoglobin 30.4 pg (28.0-32.0); Mean Corpuscular Hgb Conc. 34.2 g/dL (32.0-36.0); Mean Corpuscular Volume 88.7 fL (80.0-100.0); Monocytes # (auto) 0.4 10 ^3/uL (0-1.3); Monocytes % (auto) 5.4 % (0.0-12.0); Neutrophils % (auto) 63.4 % (37.0-80.0); Nucleated Red Blood Cells % 0.1 %; Platelet Count (auto) 214 10^3/uL (140-450); Red Blood Cells 4.59 10^6/uL (4.0-5.20); Red Cell Distribution Width 13.9 % (11.8-14.3); White Blood Cell 7.9 10^3/uL (4.4-10.8)
[2024-04-30] MEDS: ACETAMINOPHEN 325 MG TAB PO PRN (10:50)
[2024-04-30 10:52] LABS: Anion Gap 8 (5-15); Carbon Dioxide 24 mmol/L (20-31); Potassium 3.6 mmol/L (3.5-5.1); Sodium 140 mmol/L (136-145)
[2024-04-30 10:53] LABS: Calcium 9.3 mg/dL (8.7-10.4)
[2024-04-30 10:58] LABS: BUN/Creatinine Ratio 14.7 (10.0-20.0); Blood Urea Nitrogen 11 mg/dL (9-23)
[2024-04-30 11:13] LABS: Chloride 108 mmol/L (98-107); Glucose 117 mg/dL (74-106)
--- NOTE | 2024-04-30 13:01 | DVHINCON2 ---
GI Consult Consult Note Date of Consultation: April 30, 2024 Chief Complaint: Hematochezia Referring Physician: Dr. Sadler, resident physician H&P: The patient is a 43-year-old female admitted with abdominal pain and complaints of watery and bloody diarrhea. Patient also complains of nausea and nonbloody emesis with multiple episodes. She denies prior history of similar symptoms or history of colitis. She only takes ibuprofen and has a history of a hysterectomy in the past. She denies any ill contacts recent antibiotic use, travel history or change in her overall health. She denies taking any supplements. Patient had multiple bloody bowel movements. She states that she continues to have some blood in stool. Hemoglobin was 15 however. Patient was having abdominal pain and she states that the abdominal pain has resolved. Patient wants to eat a regular diet. Patient was having malaise, denies chest pain shortness of breath, cough or wheeze, dysuria or hematuria. She denies fevers or chills. Past Medical History: As above Past Surgical History: Hysterectomy Social History: NO smoking, drinking ETOH she does smoke marijuana Family History: No gastrointestinal diseases or malignancies Current Medications Medications (Trade) Dose Ordered Sig/Win Route PRN Reason Start Time Stop Time Status Last Admin Pantoprazole Sodium (Protonix) 40 mg BID IV 04/29/24 22:00 04/30/24 10:00 Ondansetron HCl (Zofran) 4 mg Q4HPRN PRN IV NAUSEA / VOMITING 04/29/24 21:30 Morphine Sulfate 1 mg Q4HP PRN IV SEVERE PAIN (7-10 PAIN SCALE) 04/29/24 21:30 Acetaminophen (Tylenol Tablet) 650 mg Q6HP PRN PO MILD PAIN (1-3 PAIN SCALE) 04/30/24 10:45 04/30/24 10:50 Review of Systems: 12 point review of system negative other than HPI Constitutional: no fever, chill, weight loss HEENT: no eye pain, no hearing loss, no oral lesion, no scleral icterus Heart: no chest pain, no chest pressure Lung: no cough, no dyspnea with exertion Abdomen: see HPI : no pain with urination, normal appearing urine Musculoskeletal: no joint pain, no muscle pain Neurological: no seizure, no loss of sensation, no weakness in extremities Pysch: no depression, no anxiety Derm: no rash, no jaundice Vital Signs Date Time Temp Pulse Resp B/P (MAP) Pulse Ox O2 Delivery O2 Flow Rate FiO2 04/30/24 11:50 97.9 04/30/24 08:38 69 18 108/67 (81) 96 04/29/24 22:08 Room Air* 0 21 Physical exam: General: NAD, AAOX3 HEENT: PERRL, no scleral icterus, normal hearing, gums without lesions or bleeding, oropharynx clear without erythema or exudate. Neck: Supple without enlargement of the thyroid, or lymphadenopathy. Chest: Normal size and shape, no tenderness, lung johnson clear to auscultation and percussion, nonlabored breathing. Heart: RRR, no murmur Abdomen: non-distended, no tenderness to palpation, +BS, no hepatosplenomegaly Extremities: no edema, no cyanosis Neurological: CN II-XII intact, sensation intact in all extremities, 5+ strength in all extremities, no asterixis Skin: No rashes, No jaundice Labs: Labs Test 04/30/24 12:05 04/30/24 09:38 04/29/24 22:30 04/29/24 21:35 Range/Units Stool Occult Blood Positive Negative Stool Occult Blood Sample #3 Negative White Blood Count 7.9 # 4.4-10.8 10^3/uL Red Blood Count 4.59 4.0-5.20 10^6/uL Hemoglobin 13.9 12.2-16.2 g/dL Hematocrit 40.7 36.0-46.0 % Mean Corpuscular Volume 88.7 80.0-100.0 fL Mean Corpuscular Hemoglobin 30.4 28.0-32.0 pg Mean Corpuscular Hemoglobin Concent 34.2 32.0-36.0 g/dL Red Cell Distribution Width 13.9 11.8-14.3 % Platelet Count 214 140-450 10^3/uL Mean Platelet Volume 9.0 6.9-10.8 fL Neutrophils (%) (Auto) 63.4 37.0-80.0 % Lymphocytes (%) (Auto) 27.2 10.0-50.0 % Monocytes (%) (Auto) 5.4 0.0-12.0 % Eosinophils (%) (Auto) 3.2 0.0-7.0 % Basophils (%) (Auto) 0.8 0.0-2.0 % Neutrophils # (Auto) 5.0 1.6-8.6 10 ^3/uL Lymphocytes # (Auto) 2.1 0.4-5.4 10 ^3/uL Monocytes # (Auto) 0.4 0-1.3 10 ^3/uL Eosinophils # (Auto) 0.3 0-0.8 10 ^3/uL Basophils # (Auto) 0.1 0-0.2 10 ^3/uL Nucleated Red Blood Cells 0.1 % Sodium Level 140 136-145 mmol/L Potassium Level 3.6 3.5-5.1 mmol/L Chloride Level 108 H 98-107 mmol/L Carbon Dioxide Level 24 20-31 mmol/L Anion Gap 8 5-15 Blood Urea Nitrogen 11 9-23 mg/dL Creatinine 0.75 0.550-1.02 mg/dL Glomerular Filtration Rate Calc 102 >90 mL/min BUN/Creatinine Ratio 14.7 10.0-20.0 Serum Glucose 117 H 74-106 mg/dL Calcium Level 9.3 8.7-10.4 mg/dL Influenza Type A Antigen Negative Negative Influenza Type B Antigen Negative Negative SARS-CoV-2 Antigen (Rapid) Negative NEGATIVE Prothrombin Time 10.8 9.3-11.8 sec Prothrombin Time INR 1.02 0.9-1.15 Activated Partial Thromboplast Time 27.9 24.5-34.5 SEC Lactic Acid Level 1.2 0.4-2.0 mmol/L Beta HCG, Quantitative 2.8 1.5-4.2 mIU/mL Test 04/29/24 13:00 04/29/24 11:53 Range/Units Urine Color Light-yellow Yellow Urine Clarity Clear Clear Urine pH 7.0 5.0-9.0 Urine Specific [place] 1.010 1.001-1.035 Urine Protein Negative Negative Urine Ketones Negative Negative Urine Blood Negative Negative /uL Urine Nitrite Negative Negative Urine Bilirubin Negative Negative Urine Urobilinogen Normal Negative mg/dL Urine Leukocyte Esterase Negative Negative /uL Urine RBC 5 0 - 4 /hpf Urine Microscopic WBC 2 0-5 /HPF Urine Squamous Epithelial Cells Few <5 /hpf Urine Bacteria Few H None Seen /hpf Urine Glucose Normal Normal mg/dL Urine Opiates Screen Neg NEGATIVE Urine Fentanyl Screen Neg NEGATIVE Urine Barbiturates Screen Neg NEGATIVE Urine Phencyclidine Screen Neg NEGATIVE Urine Amphetamines Screen Neg NEGATIVE Urine Benzodiazepines Screen Neg NEGATIVE Urine Cocaine Screen Neg NEGATIVE Urine Cannabinoids Screen Pos NEGATIVE Total Bilirubin 0.4 0.2-1.0 mg/dL Aspartate Amino Transferase (AST) 16 13-40 U/L Alanine Aminotransferase (ALT) 24 7-40 U/L Alkaline Phosphatase 87 46-116 U/L Total Protein 7.6 5.7-8.2 g/dL Albumin 4.7 3.2-4.8 g/dL Lipase 33 12-53 U/L Imaging: No acute GI findings Assessment: 1. Abdominal pain 2. Diarrhea and hematochezia 3. Nausea and vomiting Patient's symptoms are improving, patient wants to eat a regular diet. Differential diagnosis includes infectious colitis versus viral gastroenteritis and hemorrhoidal bleeding versus ischemic colitis versus other. Plan: 1. Supportive care 2. Outpatient follow up and colonoscopy 3. Diet as tolerated 4. Continue with the proton pump inhibitor 5. Antiemetics 6. If the patient has any more episodes of bleeding and diarrhea or decrease in hemoglobin we will consider inpatient colonoscopy Date of Service: Apr 30, 2024 Billing Provider: WALT DUARTE MD Common Visit Codes: [id number] INP/OBS CARE (HIGH) Consultation Codes: [id number] CONSULT <60MIN WALT DUARTE MD Apr 30, 2024 13:01
--- NOTE | 2024-04-30 18:05 | DVHINCON2 ---
Date of service: Apr 30, 2024 Referring Physician Bereket Lucas Reason for Consultation right ureteral stone History of Present Illness admitted here for bloody diarrhea being worked up currently;CT shows large intramural stone right trigone,asympt;stone right kidney nonobstructing Past Medical History reviewed Past Surgical History reviewed Family History: Chronic obstructive lung disease (situation) G8 FATHER Allergies: Coded Allergies: NO KNOWN ALLERGIES (Unverified , 03/09/18) Home Meds Reported Medications Ibuprofen (Ibuprofen) 800 Mg Tab, 800 MG PO PRN for MILD PAIN, MG 07/15/16 Current Medications Current Medications Medications (Trade) Dose Ordered Sig/Win Route PRN Reason Start Time Stop Time Status Last Admin Pantoprazole Sodium (Protonix) 40 mg BID IV 04/29/24 22:00 04/30/24 10:00 Ondansetron HCl (Zofran) 4 mg Q4HPRN PRN IV NAUSEA / VOMITING 04/29/24 21:30 Morphine Sulfate 1 mg Q4HP PRN IV SEVERE PAIN (7-10 PAIN SCALE) 04/29/24 21:30 Acetaminophen (Tylenol Tablet) 650 mg Q6HP PRN PO MILD PAIN (1-3 PAIN SCALE) 04/30/24 10:45 04/30/24 10:50 Review of Systems reviewed Vital Signs Vital Signs Date Time Temp Pulse Resp B/P (MAP) Pulse Ox O2 Delivery O2 Flow Rate FiO2 04/30/24 17:00 98.0 60 17 100/51 (67) 96 98.0 04/30/24 07:30 Room Air* 0 21 Labs/Diagnostic Data Labs Test 04/30/24 12:05 04/30/24 09:38 04/29/24 22:30 04/29/24 21:35 Range/Units Stool Occult Blood Positive Negative Stool Occult Blood Sample #3 Negative Stool for White Cells None seen White Blood Count 7.9 # 4.4-10.8 10^3/uL Red Blood Count 4.59 4.0-5.20 10^6/uL Hemoglobin 13.9 12.2-16.2 g/dL Hematocrit 40.7 36.0-46.0 % Mean Corpuscular Volume 88.7 80.0-100.0 fL Mean Corpuscular Hemoglobin 30.4 28.0-32.0 pg Mean Corpuscular Hemoglobin Concent 34.2 32.0-36.0 g/dL Red Cell Distribution Width 13.9 11.8-14.3 % Platelet Count 214 140-450 10^3/uL Mean Platelet Volume 9.0 6.9-10.8 fL Neutrophils (%) (Auto) 63.4 37.0-80.0 % Lymphocytes (%) (Auto) 27.2 10.0-50.0 % Monocytes (%) (Auto) 5.4 0.0-12.0 % Eosinophils (%) (Auto) 3.2 0.0-7.0 % Basophils (%) (Auto) 0.8 0.0-2.0 % Neutrophils # (Auto) 5.0 1.6-8.6 10 ^3/uL Lymphocytes # (Auto) 2.1 0.4-5.4 10 ^3/uL Monocytes # (Auto) 0.4 0-1.3 10 ^3/uL Eosinophils # (Auto) 0.3 0-0.8 10 ^3/uL Basophils # (Auto) 0.1 0-0.2 10 ^3/uL Nucleated Red Blood Cells 0.1 % Sodium Level 140 136-145 mmol/L Potassium Level 3.6 3.5-5.1 mmol/L Chloride Level 108 H 98-107 mmol/L Carbon Dioxide Level 24 20-31 mmol/L Anion Gap 8 5-15 Blood Urea Nitrogen 11 9-23 mg/dL Creatinine 0.75 0.550-1.02 mg/dL Glomerular Filtration Rate Calc 102 >90 mL/min BUN/Creatinine Ratio 14.7 10.0-20.0 Serum Glucose 117 H 74-106 mg/dL Calcium Level 9.3 8.7-10.4 mg/dL Influenza Type A Antigen Negative Negative Influenza Type B Antigen Negative Negative SARS-CoV-2 Antigen (Rapid) Negative NEGATIVE Prothrombin Time 10.8 9.3-11.8 sec Prothrombin Time INR 1.02 0.9-1.15 Activated Partial Thromboplast Time 27.9 24.5-34.5 SEC Lactic Acid Level 1.2 0.4-2.0 mmol/L Beta HCG, Quantitative 2.8 1.5-4.2 mIU/mL Test 04/29/24 13:00 04/29/24 11:53 Range/Units Urine Color Light-yellow Yellow Urine Clarity Clear Clear Urine pH 7.0 5.0-9.0 Urine Specific [place] 1.010 1.001-1.035 Urine Protein Negative Negative Urine Ketones Negative Negative Urine Blood Negative Negative /uL Urine Nitrite Negative Negative Urine Bilirubin Negative Negative Urine Urobilinogen Normal Negative mg/dL Urine Leukocyte Esterase Negative Negative /uL Urine RBC 5 0 - 4 /hpf Urine Microscopic WBC 2 0-5 /HPF Urine Squamous Epithelial Cells Few <5 /hpf Urine Bacteria Few H None Seen /hpf Urine Glucose Normal Normal mg/dL Urine Opiates Screen Neg NEGATIVE Urine Fentanyl Screen Neg NEGATIVE Urine Barbiturates Screen Neg NEGATIVE Urine Phencyclidine Screen Neg NEGATIVE Urine Amphetamines Screen Neg NEGATIVE Urine Benzodiazepines Screen Neg NEGATIVE Urine Cocaine Screen Neg NEGATIVE Urine Cannabinoids Screen Pos NEGATIVE Total Bilirubin 0.4 0.2-1.0 mg/dL Aspartate Amino Transferase (AST) 16 13-40 U/L Alanine Aminotransferase (ALT) 24 7-40 U/L Alkaline Phosphatase 87 46-116 U/L Total Protein 7.6 5.7-8.2 g/dL Albumin 4.7 3.2-4.8 g/dL Lipase 33 12-53 U/L Assessment large stone right trigone possible stone within ureterocele vs pssing calculous Plan/Recommendation kub Plan discussed with: Patient REGAN DIAMOND MD Apr 30, 2024 18:05
--- NOTE | 2024-04-30 21:03 | DVH ---
Date: 04/30/2024 08:00 PM Examination: XY KUB ABDOMEN SINGLE VIEW History: right ureteral stone [intramural] Comparison: None TECHNIQUE: Frontal views of the abdomen was obtained. FINDINGS: Bowel gas pattern is unremarkable. The lung bases are unremarkable. No acute osseous abnormality identified. IMPRESSION: 1. Nonobstructive bowel gas pattern.
--- NOTE | 2024-04-30 22:50 | DVHPN2 ---
Subjective The patient seen and examined at bedside, no complains today. Reviewed: Care Plan, H&P, Labs, Medications, Previous Orders, Radiology Changes from previous H/P or p: No Changes Eyes: No Pain, No Vision change, No Conjunctivae inflammation, No Eyelid inflammation, No Other, No Redness ENT: No Ear pain, No Ear discharge, No Nose pain, No Nose discharge, No Nose congestion, No Mouth pain, No Mouth swelling, No Throat pain, No Throat swelling, No Other Cardiovascular: No Chest Pain, No Palpitations, No Orthopnea, No Paroxysmal Noc. Dyspnea, No Edema, No Lt Headedness, No Other Respiratory: No Cough, No Dry, No Shortness of breath, No SOB with excertion, No Wheezing, No Hemoptysis, No Pleuritic Pain, No Sputum, No Other Gastrointestinal: Nausea, Vomiting, Abdominal Pain, Diarrhea, Hematochezia Genitourinary: Frequency Musculoskeletal: No other, No neck pain, No shoulder pain, No arm pain, No back pain, No hand pain, No leg pain, No foot pain Skin: No Rash, No Lesions, No Jaundice, No Bruising, No Other Objective Vitals Vital Signs Date Time Temp Pulse Resp B/P (MAP) Pulse Ox O2 Delivery O2 Flow Rate FiO2 04/30/24 21:00 98.6 82 17 105/60 (75) 95 98.6 04/30/24 20:00 Room Air* 0 21 Intake/Output Intake and Output 04/30/24 07:00 Intake Total 620 ml Balance 620 ml Intake Oral 120 ml IV Total 500 ml # Voids 1 Medications Current Medications Medications Dose Ordered Sig/Win Route Start Time Stop Time Status Last Admin Dose Admin Pantoprazole Sodium 40 mg BID IV 04/29/24 22:00 04/30/24 22:03 40 MG Ondansetron HCl 4 mg Q4HPRN PRN IV 04/29/24 21:30 Morphine Sulfate 1 mg Q4HP PRN IV 04/29/24 21:30 Acetaminophen 650 mg Q6HP PRN PO 04/30/24 10:45 04/30/24 10:50 650 MG Laboratory Results Laboratory Tests 04/30/24 09:38 Chemistry Test 04/30/24 09:38 Calcium Level 9.3 mg/dL (8.7-10.4) Urinalysis Test 04/29/24 13:00 Urine Color Light-yellow (Yellow) Urine Clarity Clear (Clear) Urine pH 7.0 (5.0-9.0) Urine Specific [place] 1.010 (1.001-1.035) Urine Protein Negative (Negative) Urine Ketones Negative (Negative) Urine Blood Negative /uL (Negative) Urine Nitrite Negative (Negative) Urine Bilirubin Negative (Negative) Urine Urobilinogen Normal mg/dL (Negative) Urine Leukocyte Esterase Negative /uL (Negative) Urine RBC 5 /hpf (0 - 4) Urine Microscopic WBC 2 /HPF (0-5) Urine Squamous Epithelial Cells Few /hpf (<5) Urine Bacteria Few /hpf (None Seen) H Urine Glucose Normal mg/dL (Normal) Assessment/Plan Assessment/Plan #GI bleeding, likely lower GI bleeding, rule out peptic ulcer disease, diverticular disease, hemorrhoids, infectious: waiting for GI specialist to see the patient. #Abdominal pain, likely due to above, possible viral versus bacterial gastroenteritis #Leukocytosis likely due to above #Cannabis use, possible cannabis hyperemesis syndrome #Current smoker: Counseled on smoking cessation #Obesity #Right UVJ calculus: I will consult urology. Plan discussed with: Patient My Orders Orders - OKSANA ESCOBEDO MD Procedure Category Date Status Time Acetaminophen Tablet PHA 04/30/24 In Process (Tylenol Tablet) 10:45 * Urology Consult CONS 04/30/24 Transmitted 14:49 Date of Service: Apr 30, 2024 Billing Provider: OKSANA ESCOBEDO MD Common Visit Codes: [id number] INP/OBS CARE(HIGH) OKSANA ESCOBEDO MD Apr 30, 2024 22:50
[2024-05-01] VITALS (7 sets, daily range): BP systolic 109–127; BP diastolic 64–80; PULSE 52–80; RESP 16–20; TEMP 97.8–99; O2SAT 94–98
--- NOTE | 2024-05-01 10:13 | PRN ---
Misceleneous Note Note Note May 01, 2024 Subjective: Patient is tolerating regular diet, has no more pain or rectal bleeding Current Medications Medications (Trade) Dose Ordered Sig/Win Route Start Time Stop Time Status Last Admin Dose Admin Pantoprazole Sodium (Protonix) 40 mg BID IV 04/29/24 22:00 05/01/24 09:43 40 MG Ondansetron HCl (Zofran) 4 mg Q4HPRN PRN IV 04/29/24 21:30 Morphine Sulfate 1 mg Q4HP PRN IV 04/29/24 21:30 Acetaminophen (Tylenol Tablet) 650 mg Q6HP PRN PO 04/30/24 10:45 04/30/24 10:50 650 MG Vital Signs Date Time Temp Pulse Resp B/P (MAP) Pulse Ox O2 Delivery O2 Flow Rate FiO2 05/01/24 09:00 98.3 52 17 116/67 (83) 96 98.3 05/01/24 07:30 Room Air* 0 21 Physical exam: Alert and oriented lying in bed no distress Regular rate and rhythm Normocephalic atraumatic extraocular movements were intact pupils equal round react light accommodating Soft nontender nondistended abdomen No clubbing cyanosis or edema Labs were reviewed Hemoglobin is stable Impression: 1. Abdominal pain 2. Right kidney stone 3. Hematochezia 4. Diarrhea Recommendations: 1. Signing off please reconsult p.r.n. 2. Consider outpatient colonoscopy 3. current medications 4. Patient will need GI follow-up as an outpatient WALT DUARTE MD May 01, 2024 10:13
--- NOTE | 2024-05-01 19:56 | DVHPN2 ---
Subjective The patient seen and examine at bedside. No more bleeding. Reviewed: Care Plan, H&P, Labs, Medications, Previous Orders, Radiology Changes from previous H/P or p: No Changes Eyes: No Pain, No Vision change, No Conjunctivae inflammation, No Eyelid inflammation, No Other, No Redness ENT: No Ear pain, No Ear discharge, No Nose pain, No Nose discharge, No Nose congestion, No Mouth pain, No Mouth swelling, No Throat pain, No Throat swelling, No Other Cardiovascular: No Chest Pain, No Palpitations, No Orthopnea, No Paroxysmal Noc. Dyspnea, No Edema, No Lt Headedness, No Other Respiratory: No Cough, No Dry, No Shortness of breath, No SOB with excertion, No Wheezing, No Hemoptysis, No Pleuritic Pain, No Sputum, No Other Gastrointestinal: Nausea, Vomiting, Abdominal Pain, Diarrhea; No Constipation, No Melena; Hematochezia; No Other Genitourinary: No Dysuria; Frequency; No Incontinence, No Hematuria, No Retention, No Other Musculoskeletal: No other, No neck pain, No shoulder pain, No arm pain, No back pain, No hand pain, No leg pain, No foot pain Skin: No Rash, No Lesions, No Jaundice, No Bruising, No Other Objective Vitals Vital Signs Date Time Temp Pulse Resp B/P (MAP) Pulse Ox O2 Delivery O2 Flow Rate FiO2 05/01/24 17:00 98.6 71 17 116/80 (92) 97 98.6 05/01/24 07:30 Room Air* 0 21 Intake/Output Intake and Output 05/01/24 07:00 Intake Total 905 ml Output Total 3 ml Balance 902 ml Intake Oral 905 ml Output Stool Total 3 ml # Voids 9 General Appearance: Alert, Oriented X3, Cooperative, No acute distress HEENT: Atraumatic, PERRLA, EOMI, Mucous membr. moist/pink Neck: Supple Lungs: Clear to auscultation, Normal air movement Cardiovascular: Regular rate, Normal S1, Normal S2, No murmurs, Gallops, Rubs Abdomen: Normal bowel sounds, Soft, No tenderness Neuro: Cranial nerves 3-12 NL Psych/Mental Status: Mental status NL Medications Current Medications Medications Dose Ordered Sig/Win Route Start Time Stop Time Status Last Admin Dose Admin Pantoprazole Sodium 40 mg BID IV 04/29/24 22:00 05/01/24 09:43 40 MG Ondansetron HCl 4 mg Q4HPRN PRN IV 04/29/24 21:30 Morphine Sulfate 1 mg Q4HP PRN IV 04/29/24 21:30 Acetaminophen 650 mg Q6HP PRN PO 04/30/24 10:45 04/30/24 10:50 650 MG Laboratory Results Laboratory Tests 04/30/24 09:38 Urinalysis Test 04/29/24 13:00 Urine Color Light-yellow (Yellow) Urine Clarity Clear (Clear) Urine pH 7.0 (5.0-9.0) Urine Specific [place] 1.010 (1.001-1.035) Urine Protein Negative (Negative) Urine Ketones Negative (Negative) Urine Blood Negative /uL (Negative) Urine Nitrite Negative (Negative) Urine Bilirubin Negative (Negative) Urine Urobilinogen Normal mg/dL (Negative) Urine Leukocyte Esterase Negative /uL (Negative) Urine RBC 5 /hpf (0 - 4) Urine Microscopic WBC 2 /HPF (0-5) Urine Squamous Epithelial Cells Few /hpf (<5) Urine Bacteria Few /hpf (None Seen) H Urine Glucose Normal mg/dL (Normal) Microbiology Microbiology Date/Time Source Procedure Growth Status 04/30/24 12:05 Stool Stool Culture - Preliminary Resulted 04/30/24 12:05 Stool Shiga Toxin I & II - Final Resulted 04/30/24 12:05 Stool Clostridium difficile Toxin Assay - Final Resulted Labs and/or images reviewed: Labs reviewed by me Assessment/Plan Assessment/Plan #GI bleeding, likely lower GI bleeding, rule out peptic ulcer disease, diverticular disease, hemorrhoids, infectious: Appreciate GI specialist recommendation. Outpatient colonoscopy. #Abdominal pain, likely due to above, possible viral versus bacterial gastroenteritis #Leukocytosis likely due to above #Cannabis use, possible cannabis hyperemesis syndrome #Current smoker: Counseled on smoking cessation #Obesity #Right UVJ calculus: Appreciate Dr Fontana input. Will follow up KUB. Plan discussed with: Patient Date of Service: May 01, 2024 Billing Provider: OKSANA ESCOBEDO MD Common Visit Codes: [id number] INP/OBS CARE(HIGH) OKSANA ESCOBEDO MD May 01, 2024 19:56
[2024-05-02 01:00] VITALS: BP 101/64; PULSE 71; RESP 19; TEMP 98.4; O2SAT 95
[2024-05-02 05:00] VITALS: BP_SYST 110; BP_SYST 98; BP_DIAS 57; BP_DIAS 63; PULSE 68; PULSE 69; RESP 18; TEMP 97.7; TEMP 97.8; O2SAT 96; O2SAT 98
[2024-05-02 06:44] LABS: Basophils # (auto) 0.1 10 ^3/uL (0-0.2); Eosinophils # (auto) 0.3 10 ^3/uL (0-0.8); Eosinophils % (auto) 3.8 % (0.0-7.0); Hematocrit 43.8 % (36.0-46.0); Hemoglobin 14.9 g/dL (12.2-16.2); Lymphocytes # (auto) 2.5 10 ^3/uL (0.4-5.4); Lymphocytes % (auto) 35.6 % (10.0-50.0); Mean Corpuscular Hemoglobin 30.3 pg (28.0-32.0); Mean Corpuscular Hgb Conc. 34.1 g/dL (32.0-36.0); Mean Corpuscular Volume 88.9 fL (80.0-100.0); Monocytes # (auto) 0.5 10 ^3/uL (0-1.3); Monocytes % (auto) 6.8 % (0.0-12.0); Neutrophils # (auto) 3.6 10 ^3/uL (1.6-8.6); Neutrophils % (auto) 52.8 % (37.0-80.0); Nucleated Red Blood Cells % 0.1 %; Platelet Count (auto) 220 10^3/uL (140-450); Red Blood Cells 4.92 10^6/uL (4.0-5.20); Red Cell Distribution Width 13.9 % (11.8-14.3); White Blood Cell 6.9 10^3/uL (4.4-10.8)
[2024-05-02 06:53] LABS: Anion Gap 7 (5-15); Carbon Dioxide 25 mmol/L (20-31); Potassium 4.2 mmol/L (3.5-5.1); Sodium 141 mmol/L (136-145)
[2024-05-02 06:54] LABS: Calcium 9.6 mg/dL (8.7-10.4); Chloride 109 mmol/L (98-107)
[2024-05-02 06:59] LABS: BUN/Creatinine Ratio 13.4 (10.0-20.0); Blood Urea Nitrogen 11 mg/dL (9-23); Glucose 97 mg/dL (74-106)
[2024-05-02 09:00] VITALS: BP 113/72; PULSE 81; RESP 20; TEMP 98.1; O2SAT 95
[2024-05-02] MEDS ORDERED: IBUP-1454 PO (11:37)
[2024-05-02] MEDS ORDERED: LEVO500T91 PO (11:37)
--- NOTE | 2024-05-02 11:39 | DVHDS2 ---
Discharge Summary Date of Admission Apr 29, 2024 at 21:16 Date of Discharge: May 02, 2024 Admitting Diagnosis #GI bleeding, likely lower GI bleeding, need to rule out peptic ulcer disease, diverticular disease, hemorrhoids, infectious #Abdominal pain, likely due to above, possible viral versus bacterial gastroenteritis #Leukocytosis likely due to above #Cannabis use, possible cannabis hyperemesis syndrome #Current smoker: Counseled on smoking cessation #Obesity #Right UVJ calculus Labs/Diagnostic Data: Laboratory Results Test 05/02/24 06:21 04/30/24 12:05 04/29/24 22:30 04/29/24 21:35 White Blood Count 6.9 10^3/uL (4.4-10.8) Red Blood Count 4.92 10^6/uL (4.0-5.20) Hemoglobin 14.9 g/dL (12.2-16.2) Hematocrit 43.8 % (36.0-46.0) Mean Corpuscular Volume 88.9 fL (80.0-100.0) Mean Corpuscular Hemoglobin 30.3 pg (28.0-32.0) Mean Corpuscular Hemoglobin Concent 34.1 g/dL (32.0-36.0) Red Cell Distribution Width 13.9 % (11.8-14.3) Platelet Count 220 10^3/uL (140-450) Mean Platelet Volume 8.8 fL (6.9-10.8) Neutrophils (%) (Auto) 52.8 % (37.0-80.0) Lymphocytes (%) (Auto) 35.6 % (10.0-50.0) Monocytes (%) (Auto) 6.8 % (0.0-12.0) Eosinophils (%) (Auto) 3.8 % (0.0-7.0) Basophils (%) (Auto) 1.0 % (0.0-2.0) Neutrophils # (Auto) 3.6 10 ^3/uL (1.6-8.6) Lymphocytes # (Auto) 2.5 10 ^3/uL (0.4-5.4) Monocytes # (Auto) 0.5 10 ^3/uL (0-1.3) Eosinophils # (Auto) 0.3 10 ^3/uL (0-0.8) Basophils # (Auto) 0.1 10 ^3/uL (0-0.2) Nucleated Red Blood Cells 0.1 % Sodium Level 141 mmol/L (136-145) Potassium Level 4.2 mmol/L (3.5-5.1) Chloride Level 109 mmol/L (98-107) Carbon Dioxide Level 25 mmol/L (20-31) Anion Gap 7 (5-15) Blood Urea Nitrogen 11 mg/dL (9-23) Creatinine 0.82 mg/dL (0.550-1.02) Glomerular Filtration Rate Calc 92 mL/min (>90) BUN/Creatinine Ratio 13.4 (10.0-20.0) Serum Glucose 97 mg/dL (74-106) Calcium Level 9.6 mg/dL (8.7-10.4) Stool Occult Blood Positive (Negative) Stool Occult Blood Sample #3 (Negative) Stool for White Cells None seen Influenza Type A Antigen Negative (Negative) Influenza Type B Antigen Negative (Negative) SARS-CoV-2 Antigen (Rapid) Negative (NEGATIVE) Prothrombin Time 10.8 sec (9.3-11.8) Prothrombin Time INR 1.02 (0.9-1.15) Activated Partial Thromboplast Time 27.9 SEC (24.5-34.5) Lactic Acid Level 1.2 mmol/L (0.4-2.0) Beta HCG, Quantitative 2.8 mIU/mL (1.5-4.2) Test 04/29/24 13:00 04/29/24 11:53 Urine Color Light-yellow (Yellow) Urine Clarity Clear (Clear) Urine pH 7.0 (5.0-9.0) Urine Specific [place] 1.010 (1.001-1.035) Urine Protein Negative (Negative) Urine Ketones Negative (Negative) Urine Blood Negative /uL (Negative) Urine Nitrite Negative (Negative) Urine Bilirubin Negative (Negative) Urine Urobilinogen Normal mg/dL (Negative) Urine Leukocyte Esterase Negative /uL (Negative) Urine RBC 5 /hpf (0 - 4) Urine Microscopic WBC 2 /HPF (0-5) Urine Squamous Epithelial Cells Few /hpf (<5) Urine Bacteria Few /hpf (None Seen) Urine Glucose Normal mg/dL (Normal) Urine Opiates Screen Neg (NEGATIVE) Urine Fentanyl Screen Neg (NEGATIVE) Urine Barbiturates Screen Neg (NEGATIVE) Urine Phencyclidine Screen Neg (NEGATIVE) Urine Amphetamines Screen Neg (NEGATIVE) Urine Benzodiazepines Screen Neg (NEGATIVE) Urine Cocaine Screen Neg (NEGATIVE) Urine Cannabinoids Screen Pos (NEGATIVE) Total Bilirubin 0.4 mg/dL (0.2-1.0) Aspartate Amino Transferase (AST) 16 U/L (13-40) Alanine Aminotransferase (ALT) 24 U/L (7-40) Alkaline Phosphatase 87 U/L (46-116) Total Protein 7.6 g/dL (5.7-8.2) Albumin 4.7 g/dL (3.2-4.8) Lipase 33 U/L (12-53) Other Laboratory Tests 05/02/24 06:21 Brief Hx & Hospital Course: This is a 43 years old female come to emergency department because of severe abdominal pain. The patient his past medical history of total hysterectomy couple years ago. The patient has smoked cigarette and marijuana. The patient has started having severe epigastric pain associated with nausea and vomiting and diarrhea. She had about 10 episodes of vomiting and several episodes of diarrhea watery as well as hematochezia. Patient CT scan without contrast showed nonobstructive calculus near the right ureteral vesicular junction, no hydroureteral or hydronephrosis. Hepatic steatosis and cholelithiasis. Her hemoglobin is stable. The nausea or vomiting improved with Zofran. Advised to stop smoking marijuana which may induced cyclic vomiting. GI specialist see the patient and recommend outpatient colonoscopy. Urology also see the patient he did a KUB which showed the bladder stone already gone. No obstruction. He recommend drinking water and avoid dehydration and salty foods. Follow up with primary care physician 1-2 weeks. Activity as tolerated. Diet per home diet. Physical exam HEENT: Normocephalic atraumatic pupils equal react to light and accommodation. Extraocular muscles intact, conjunctiva pink, oropharynx moist, no thrush, no exudate. Lymphatic: No lymphadenopathy Cardiovascular exam: S1, S2 was heard. No murmurs, rubs, gallops Lung: Clear on auscultation bilaterally, no wheeze, rale, rhonchi. GI: Abdominal soft, nondistended, nontenderness, positive bowel sounds. Extremity: No crepitus, cyanosis, edema. Pedal pulses present bilateral. Full range of motion. Skin: Normal turgor, no rash. Psych: Alert, oriented x3. Neurology: No focal deficits, cranial nerve II to XII grossly intact. This medical document was created using an electronic medical record system with [employer] direct computerized dictation system. Although this document has been carefully reviewed, there may still be some phonetic and typographical errors. These areas are purely typographical due to imperfections of the software programs, and do not reflect any compromise in the patient's medical care. Condition at Discharge: Stable Final Diagnosis/Problems List #GI bleeding, likely lower GI bleeding, need to rule out peptic ulcer disease, diverticular disease, hemorrhoids, infectious #Abdominal pain, likely due to above, possible viral versus bacterial gastroenteritis #Leukocytosis likely due to above #Cannabis use, possible cannabis hyperemesis syndrome #Current smoker: Counseled on smoking cessation #Obesity #Right blader stone near UVJ , resolved, KUB show no stone, no obstruction. Discharge Disposition: Home Discharge Instruct/Medications Diet: Regular Activity: No Restrictions, As Tolerated Follow Up/Referral: pcp 1-2 weeks Medications: levaquin 500mg PO daily Ibuprofen 600mg PO q8 hours PRN Discharge Statement: "Patient was advised to return to the ER or call 911 if any headaches, dizziness, shortness of breath, chest pain, abdominal pain, bleeding, fevers, or worsening of medical condition. Patient was counseled about treatment plan, medications, possible side effects, patientverbalized understanding. All questions were answered to the best of my ability. This discharge took greater then 30 minutes in planning, reviewing documentation, counseling the patient, and discussing with other team members." ASSESSMENT ASSESSMENT Assessment UTI kidney stone Date of Service: May 02, 2024 Billing Provider: OKSANA ESCOBEDO MD Common Visit Codes: 60586-YOA/OBS DISCH DAY >30min OKSANA ESCOBEDO MD May 02, 2024 11:39
[2024-05-02 13:00] VITALS: BP 110/59; PULSE 67; RESP 19; TEMP 98.5; O2SAT 97
== END 2024-05-02 13:27 | disposition home or self-care (01) | DRG 241 ==
LOC: ER 11:30 → EAST 21:16 → ER 04-30 00:59
PROVIDERS: ADMIT Internal Medicine; ATTEND Internal Medicine
DX: K29.01 Acute gastritis with bleeding (principal); A04.9 Bacterial intestinal infection, unspecified; N20.2 Calculus of kidney with calculus of ureter; D72.829 Elevated white blood cell count, unspecified; N39.0 Urinary tract infection, site not specified; A08.4 Viral intestinal infection, unspecified; Z20.822 Contact with and (suspected) exposure to COVID-19; K80.20 Calculus of gallbladder without cholecystitis without obstruction; F12.90 Cannabis use, unspecified, uncomplicated; E66.9 Obesity, unspecified; F17.210 Nicotine dependence, cigarettes, uncomplicated; Z90.710 Acquired absence of both cervix and uterus; Z83.3 Family history of diabetes mellitus; Z82.5 Family history of asthma and other chronic lower respiratory diseases; Z79.899 Other long term (current) drug therapy; Z68.28 Body mass index [BMI] 28.0-28.9, adult
CPT/HCPCS: 36415; 71045; 74018; 74176; 80048; 80053; 80307; 81001; 82270; 83605; 83690; 84702; 85014; 85018; 85025; 85048; 85610; 85730; 87045; 87426; 87427; 87493; 87804; G0378; J2470